=== PATIENT | male | born 1980 | race African-American/Black ===

== ENCOUNTER 2018-05-12 23:24 | Emergency (ER) | payer MEDICAID ==
[~2018-05-12] VITALS: Ht 177.8 cm; Wt 97.5 kg
[2018-05-12 23:32] VITALS: BP 151/78
[2018-05-13] MEDS ORDERED: ACETAMINOPHEN W/ CODEINE#3 1 EA TABLET PO ONE
[2018-05-13] MEDS ORDERED: ACETAMINOPHEN W/ CODEINE#3 1 EA TABLET ONE (00:14)
== END 2018-05-13 01:16 | disposition home or self-care (01) ==
LOC: ER 23:24
DX: S62.317A Displaced fracture of base of fifth metacarpal bone, left hand, initial encounter for closed fracture (principal); S39.012A Strain of muscle, fascia and tendon of lower back, initial encounter; X58.XXXA Exposure to other specified factors, initial encounter; Y93.89 Activity, other specified; Y92.89 Other specified places as the place of occurrence of the external cause; Y99.8 Other external cause status
CPT/HCPCS: 73130-TC

== ENCOUNTER 2018-06-07 12:29 | Emergency (ER) | payer MEDICAID ==
[~2018-06-07] VITALS: Ht 177.8 cm; Wt 98.9 kg
[2018-06-07 12:34] VITALS: BP 137/76
[2018-06-07] MEDS ORDERED: oxyCODONE/APAP (5/325 MG) 1 UDTAB TABLET PO ONE (13:00)
[2018-06-07] MEDS ORDERED: NAPROXEN 250 MG TABLET PO ONE (13:00)
[2018-06-07] MEDS ORDERED: oxyCODONE/APAP (5/325 MG) 1 UDTAB TABLET ONE (14:01)
[2018-06-07] MEDS ORDERED: NAPROXEN 250 MG TABLET ONE (14:01)
== END 2018-06-07 14:33 | disposition home or self-care (01) ==
LOC: ER 12:33
DX: S62.397A Other fracture of fifth metacarpal bone, left hand, initial encounter for closed fracture (principal); G89.29 Other chronic pain; M54.5 Low back pain; W22.8XXA Striking against or struck by other objects, initial encounter; Y93.89 Activity, other specified; Y92.89 Other specified places as the place of occurrence of the external cause; Y99.8 Other external cause status
CPT/HCPCS: 73130-TC

== ENCOUNTER 2018-07-10 18:22 | Emergency (ER) | payer MEDICAID ==
[~2018-07-10] VITALS: Ht 177.8 cm; Wt 97.5 kg
--- NOTE | 2018-07-10 18:40 | NUR ---
PATIENT ARRIVED AT UNIT C/O L HAND DISCOMFORT, REQUESTING TO HAVE CAST REMOVED. REPORTING HE MISSED HIS APPOINTMENT LAST WEDNESDAY FOR HIS CAST TO BE REMOVED. RESTING ON BED. NO ACUTE DISTRESS
--- NOTE | 2018-07-10 18:55 | NUR ---
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 PATIENT TOLERATED WELL
--- NOTE | 2018-07-10 19:05 | NUR ---
SUPERVISOR IRRIGATION AT BEDSIDE
--- NOTE | 2018-07-10 19:17 | NUR ---
PT AND REPORT RECEIVED FROM RITO LOPEZ FOR RUSSELL. PT IN BED. AAOX4. NAD. AWAITING SPLITING
--- NOTE | 2018-07-10 19:22 | NUR ---
PATIENT RESTING ON BED. NO ACUTE DISTRESS. REPORT GIVEN TO FILIBERTO VERAS FOR RUSSELL
[2018-07-10] MEDS ORDERED: HYDROCODONE/APAP 5/325MG 1 EACH TABLET ONE (19:39)
[2018-07-10 19:54] VITALS: BP 128/70
[2018-07-10] MEDS ORDERED: HYDROCODONE/APAP 5/325MG 1 EACH TABLET PO ONE (20:00)
== END 2018-07-10 19:43 | disposition home or self-care (01) ==
LOC: ER 18:24
DX: S62.397A Other fracture of fifth metacarpal bone, left hand, initial encounter for closed fracture (principal); X58.XXXA Exposure to other specified factors, initial encounter; Y93.89 Activity, other specified; Y92.89 Other specified places as the place of occurrence of the external cause; Y99.8 Other external cause status
CPT/HCPCS: 29125; 73130; 99283; A6403